=== PATIENT | female | born 1960 | race Two or more races ===

== ENCOUNTER 2022-09-29 11:35 | Outpatient (CLI) | payer OTHER | END 2022-09-29 11:40 | disposition home or self-care (01) | LOC: SONOGRAMA 11:35 | PROVIDERS: ATTEND Pathology Anatomic Pathology & Clinical Pathology | DX: E04.1 Nontoxic single thyroid nodule (principal) ==

== ENCOUNTER 2024-01-18 15:16 | Outpatient (CLI) | payer OTHER | END 2024-01-18 15:19 | disposition home or self-care (01) | LOC: SONOGRAMA 15:16 | PROVIDERS: ATTEND Pathology Anatomic Pathology & Clinical Pathology | DX: D34 Benign neoplasm of thyroid gland (principal); E07.89 Other specified disorders of thyroid; E03.9 Hypothyroidism, unspecified ==